=== PATIENT | male | born 1960 | race Caucasian/White ===

== ENCOUNTER 2024-11-06 11:17 | Emergency (ER) | payer BC ==
[~2024-11-06] VITALS: Ht 177.8 cm; Wt 85.5 kg
[2024-11-06 12:24] LABS: APPEARANCE, URINE CLEAR (CLEAR); BACTERIA, URINE AUTO NEGATIVE (NEGATIVE); BASO # 0.1 10^3/uL (0.0-0.2); BASO % 0.5 % (0.0-1.0); BILIRUBIN, URINE AUTO NEGATIVE (NEGATIVE); BLOOD, URINE BLOOD 1+ (NEGATIVE); EOS # 0.0 10^3/uL (0.0-0.5); EOS % 0.1 % (0.0-3.0); GLUCOSE, URINE (UA) AUTO NEGATIVE (NEGATIVE); KETONE, URINE AUTO NEGATIVE (NEGATIVE); LEUKOCYTE ESTERASE, URINE AUTO NEGATIVE (NEGATIVE); LYMPH # 0.9 10^3/uL (1.5-5.0); LYMPH % 9.9 % (24.0-44.0); MONO # 0.7 10^3/uL (0.0-0.8); MONO % 7.9 % (2.0-8.0); MUCUS, URINE SMALL (NEGATIVE); NEUTROPHILS # 7.5 10^3/uL (1.5-8.5); NEUTROPHILS % 81.4 % (36.0-66.0); NITRITE, URINE AUTO NEGATIVE (NEGATIVE); PLATELET COUNT, AUTOMATED 185 10^3/uL (150-450); PROTEIN, URINE AUTO 1+ mg/dL (NEGATIVE); RBC, URINE AUTO 1 /HPF (0-3); SPECIFIC GRAVITY URINE AUTO 1.014 (1.002-1.035); SQUAMOUS EPITHELIAL CELL UR AU 0 /HPF (0-6); UROBILINOGEN, URINE AUTO 0.2 mg/dL (0.0-2.0); WBC, URINE AUTO 0 /HPF (0-3)
[2024-11-06 12:53] LABS: ALT/SGPT 19.0 U/L (7.0-40); AST/SGOT 17.0 U/L (<34); CALCIUM LEVEL 8.9 MG/DL (8.3-10.6); CARBON DIOXIDE LEVEL 22.0 MMOL/L (20-31); CHLORIDE LEVEL 107.0 MMOL/L (98-107); CREATININE FOR GFR 3.43 MG/DL (0.70-1.30); GLOMERULAR FILTRATION RATE 19.4 (>49); POTASSIUM SERUM 4.5 MMOL/L (3.5-5.1); SODIUM LEVEL 143.0 MMOL/L (136-145)
[2024-11-06] MEDS: NS 500 ML IV ONE (13:10)
[2024-11-06] MEDS: ONDANSETRON 4MG 2ML VIAL IV ONE (13:48)
[2024-11-06] MEDS: MORPHINE 4 MG/ML 1 ML VIAL IV PRN (13:49)
[2024-11-06] MEDS ORDERED: TAMS-18 PO (15:53)
[2024-11-06 16:33] VITALS: BP 133/80; TEMP 98; O2SAT 97
== END 2024-11-06 16:43 | disposition home or self-care (01) ==
LOC: M ED 12:26
DX: N20.0 Calculus of kidney (principal); I10 Essential (primary) hypertension; E78.5 Hyperlipidemia, unspecified; K76.9 Liver disease, unspecified; Q61.3 Polycystic kidney, unspecified
CPT/HCPCS: 74176; 80047; 80048; 80076; 81001; 82150; 83605; 83690; 85025; 93041; 96374; 96375; 99285; J2405